=== PATIENT | female | born 1985 | race Caucasian/White ===

== ENCOUNTER 2020-07-31 07:15 | Inpatient (IN) | payer BC, OTHER ==
[2020-07-31 08:37] VITALS: BMI 32.8
[2020-07-31] MEDS ORDERED: DINOPROSTONE 10 MG VAGINAL SUPPOSITORY VG ONE (09:08)
[2020-07-31] MEDS ORDERED: ELECTROLYTE-148 SOLN 1,000 ML IV SCH (09:15)
[2020-07-31 09:20] LABS: BASO % 0.2 % (0-2.0); EOS % 0.5 % (0-4.5); HEMATOCRIT 36.5 % (32.4-45.2); HEMOGLOBIN 11.9 GM/dL (10.7-15.3); LYMPH % 14.7 % (8-40); MCH 27.2 pg (25.7-33.7); MCHC 32.6 g/dl (32.0-36.0); MEAN CELL VOLUME 83.4 fl (80-96); MEAN PLT VOLUME 9.3 fl (7.5-11.1); NEUT % 79.6 % (42.8-82.8); PLATELET COUNT 268 K/MM3 (134-434); RBC 4.37 M/mm3 (3.60-5.2); RDW 14.6 % (11.6-15.6)
[2020-07-31 09:25] LABS: INR 0.97 (0.83-1.09); PROTHROMBIN TIME (PATIENT) 11.9 SEC (9.7-13.0)
[2020-07-31 09:40] LABS: CALCIUM 8.7 mg/dL (8.5-10.1)
[2020-07-31 09:41] LABS: BLOOD UREA NITROGEN 5.1 mg/dL (7-18)
[2020-07-31 09:44] LABS: CREATININE 0.4 mg/dL (0.55-1.3)
[2020-07-31] MEDS: BUTORPHANOL TARTRATE 1 MG/ML VIAL IVPB SCH ×4 (10:53→23:09)
[2020-07-31] MEDS ORDERED: OXYTOCIN 30 UNITS in 0.9% NS 30 UNIT/500 ML INFUS.BAG IVPB SCH (21:30)
[2020-07-31] MEDS ORDERED: SODIUM PHOSPHATE/NA BIPHOS 133 ML ENEMA PR ONE (21:33)
[2020-07-31] MEDS ORDERED: OXYTOCIN 30 UNITS in 0.9% NS 30 UNIT/500 ML INFUS.BAG IVPB ONE (21:43)
[2020-07-31] MEDS ORDERED: FENTANYL/BUPIVACAINE/NS/PF - PCEA - 50 ML DISP.SYRIN EP ONE (22:00)
[2020-07-31] MEDS ORDERED: PCA PUMP NR ONE (22:00)
[2020-07-31] MEDS ORDERED: NALOXONE HCL 0.4 MG/ML VIAL IVPUSH PRN (22:08)
[2020-07-31] MEDS ORDERED: BUPIVACAINE HCL/PF 0.25% (2.5MG/ML) 10 ML VIAL ONE (22:12)
[2020-07-31] MEDS ORDERED: FENTANYL/BUPIVACAINE/NS/PF - PCEA - 50 ML DISP.SYRIN EP SCH (22:15)
[2020-08-01 00:32] LABS: HIV INTERPRETATION NEGATIVE (NEGATIVE)
[2020-08-01] MEDS ORDERED: OXYTOCIN 20 UNITS in 0.9% NS 20 UNIT/1,000 ML INFUS.BAG IV ONE (01:03)
[2020-08-01] MEDS ORDERED: BENZOCAINE 28 GM HEMORRHOIDAL OINTMENT TP PRN (01:29)
[2020-08-01] MEDS ORDERED: BISACODYL 10 MG SUPP.RECT PR PRN (01:29)
[2020-08-01] MEDS ORDERED: BENZOCAINE 20% 57 GM BOTTLE TP PRN (01:29)
[2020-08-01] MEDS ORDERED: METHYLERGONOVINE MALEATE 0.2 MG/1 ML AMP IM PRN (01:29)
[2020-08-01] MEDS ORDERED: WITCH HAZEL 50% (TUCKS) 40 PAD/JAR PAD TP PRN (01:29)
[2020-08-01] MEDS ORDERED: OXYTOCIN 20 UNITS in 0.9% NS 20 UNIT/1,000 ML INFUS.BAG IV SCH (01:45)
[2020-08-01] MEDS: BUTORPHANOL TARTRATE 1 MG/ML VIAL IVPB SCH (02:01)
[2020-08-01] MEDS: ACETAMINOPHEN 325 MG TABLET (FP) PO PRN (08:00)
[2020-08-01] MEDS: IBUPROFEN 600 MG TABLET (FP) PO PRN (08:00)
[2020-08-02 08:10] LABS: BASO % 0.6 % (0-2.0); EOS % 1.2 % (0-4.5); HEMATOCRIT 37.5 % (32.4-45.2); HEMOGLOBIN 12.6 GM/dL (10.7-15.3); LYMPH % 18.8 % (8-40); MCH 27.4 pg (25.7-33.7); MCHC 33.5 g/dl (32.0-36.0); MEAN CELL VOLUME 81.7 fl (80-96); MEAN PLT VOLUME 9.2 fl (7.5-11.1); MONO % 3.6 % (3.8-10.2); NEUT % 75.8 % (42.8-82.8); PLATELET COUNT 219 K/MM3 (134-434); RBC 4.59 M/mm3 (3.60-5.2); RDW 14.8 % (11.6-15.6); WHITE BLOOD COUNT 9.6 K/mm3 (4.0-10.0)
[2020-08-02] MEDS: ACETAMINOPHEN 325 MG TABLET (FP) PO PRN (09:16)
[2020-08-02] MEDS: IBUPROFEN 600 MG TABLET (FP) PO PRN (09:16)
[2020-08-02 14:00] VITALS: BP 130/78; PULSE 78; TEMP 98.4
== END 2020-08-02 18:40 | disposition home or self-care (01) | DRG 807 ==
LOC: JLDR 07:15 → J3W 08-01 03:37
PROVIDERS: ADMIT Obstetrics & Gynecology; ATTEND Obstetrics & Gynecology
PROC: 10E0XZZ Delivery of Products of Conception, External Approach (ICD-10-PCS; principal; 2020-07-31)
PROC: 3E0P7VZ Introduction of Hormone into Female Reproductive, Via Natural or Artificial Opening (ICD-10-PCS; 2020-07-31)
DX: O48.0 Post-term pregnancy (principal); Z37.0 Single live birth; O99.214 Obesity complicating childbirth; E66.9 Obesity, unspecified; O70.0 First degree perineal laceration during delivery; Z3A.40 40 weeks gestation of pregnancy
CPT/HCPCS: 36415; 59409; 80048; 85025; 85610; 85730; 86780; 86850; 86900; 86901; 87389; C9803; U0003; U0005

== ENCOUNTER 2022-09-07 20:28 | Emergency (ER) | payer OTHER ==
[2022-09-07 20:39] VITALS: BMI 32.3
[2022-09-07] MEDS ORDERED: SODIUM CHLORIDE 0.9% 500 ML INFUS.BAG IV ONE (21:21)
[2022-09-07] MEDS ORDERED: ACETAMINOPHEN 1000 MG/100 ML BAG IVPB ONE (21:21)
[2022-09-07] MEDS ORDERED: ONDANSETRON 4 MG/2 ML VIAL IVPUSH ONE (21:21)
[2022-09-07] MEDS ORDERED: ACETAMINOPHEN INJECTION 100 ML IVPB ONE (21:25)
[2022-09-07] MEDS ORDERED: ONDANSETRON 4 MG/2 ML VIAL ONE (21:25)
[2022-09-07 21:51] LABS: BASO % 0.1 % (0-2.0); EOS % 0.1 % (0-4.5); HEMATOCRIT 42.5 % (32.4-45.2); HEMOGLOBIN 14.3 GM/dL (10.7-15.3); LYMPH % 4.6 % (8-40); MCH 29.4 pg (25.7-33.7); MCHC 33.6 g/dl (32.0-36.0); MEAN CELL VOLUME 87.7 fl (80-96); MONO % 2.5 % (3.8-10.2); NEUT % 92.7 % (42.8-82.8); PLATELET COUNT 271 10^3/uL (134-434); RBC 4.84 M/mm3 (3.60-5.2); RDW 13.4 % (11.6-15.6); WHITE BLOOD COUNT 17.4 K/mm3 (4.0-10.0)
[2022-09-07 22:01] LABS: POTASSIUM 3.8 mmol/L (3.5-5.1)
[2022-09-07 22:02] LABS: CALCIUM 9.2 mg/dL (8.5-10.1)
[2022-09-07 22:03] LABS: ALBUMIN 3.8 g/dl (3.4-5.0); BLOOD UREA NITROGEN 6.7 mg/dL (7-18)
[2022-09-07 22:06] LABS: CREATININE 0.7 mg/dL (0.55-1.3)
[2022-09-07 22:08] LABS: BILIRUBIN,TOTAL 0.4 mg/dL (0.2-1); TOT PROT 7.6 g/dl (6.4-8.2)
[2022-09-07 22:13] LABS: ANISOCYTOSIS 1+; MACROCYTOSIS 0
[2022-09-07 22:28] VITALS: PULSE 72; RESP 19; TEMP 97.9
[2022-09-07] MEDS ORDERED: MECLIZINE HCL 25 MG TABLET (FP) PO ONE (22:48)
[2022-09-07] MEDS ORDERED: MECLIZINE HCL 25 MG TABLET (FP) ONE (23:06)
[2022-09-08 00:21] VITALS: BP 124/71
[2022-09-08 01:25] LABS: PH,URINE 8.5 (5.0-8.0); URINE APPEARANCE CLEAR; URINE BILIRUBIN NEGATIVE (NEGATIVE); URINE COLOR YELLOW; URINE GLUCOSE (UA) NEGATIVE (NEGATIVE); URINE KETONE 1+ (NEGATIVE); URINE LEUK ESTERASE NEGATIVE (NEGATIVE); URINE NITRITE NEGATIVE (NEGATIVE); URINE PROTEIN NEGATIVE (NEGATIVE); URINE UROBILINOGEN 0.2 mg/dL (0.2-1.0)
== END 2022-09-08 00:22 | disposition home or self-care (01) ==
LOC: JER 20:28
PROC: 3E033NZ Introduction of Analgesics, Hypnotics, Sedatives into Peripheral Vein, Percutaneous Approach (ICD-10-PCS; principal; 2022-09-07)
PROC: 3E033GC Introduction of Other Therapeutic Substance into Peripheral Vein, Percutaneous Approach (ICD-10-PCS; 2022-09-07)
DX: R11.2 Nausea with vomiting, unspecified (principal); R51.9 Headache, unspecified; R42 Dizziness and giddiness; R10.9 Unspecified abdominal pain; R09.89 Other specified symptoms and signs involving the circulatory and respiratory systems; Z20.822 Contact with and (suspected) exposure to COVID-19
CPT/HCPCS: 0241U-QW; 36415; 80053; 81003; 84703; 85025; 87086; 93005; 93010; 99284-25

== ENCOUNTER 2024-01-01 02:15 | Emergency (ER) | payer OTHER ==
[2024-01-01 02:30] VITALS: BP 139/97; PULSE 89; RESP 20; TEMP 98.4; BMI 31.4
[2024-01-01] MEDS ORDERED: FAMOTIDINE 20 MG TABLET ONE (02:55)
[2024-01-01] MEDS: FAMOTIDINE 10 MG TABLET PO ONE (02:59)
== END 2024-01-01 03:00 | disposition home or self-care (01) ==
LOC: JER 02:15
DX: R21 Rash and other nonspecific skin eruption (principal); L29.9 Pruritus, unspecified; T78.40XA Allergy, unspecified, initial encounter
CPT/HCPCS: 99283-25